=== PATIENT | male | born 1995 ===

== ENCOUNTER 2018-09-26 10:27 | Emergency (ER) | payer SELFPAY ==
[2018-09-26 10:44] LABS: Urine Blood 1+ (NEG); Urine Glucose NEGATIVE (NEG); Urine Protein 1+ (NEG); Urine Specific Gravity 1.025 (1.005-1.030); Urine pH 5.5 (5.0-7.0)
[2018-09-26 11:32] LABS: Potassium 4.2 mmol/L (3.5-5.1)
[2018-09-26] MEDS ORDERED: DERMABOND SKIN ADHESIVE TOP ONE (11:37)
[2018-09-26] MEDS ORDERED: LIDOCAINE 1% MPF 5 ML VIAL ONE ×2 (11:37→11:39)
[2018-09-26] MEDS ORDERED: TETANUS & DIPHTHERIA TOX,ADULT 0.5 ML VIAL ONE (11:38)
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
--- NOTE | 2018-09-26 12:47 | RAD REPORT ---
EXAM DESCRIPTION: US - Extremity Nonvascular Complete - 09/26/2018 12:39 pm CLINICAL HISTORY: Swelling;Pain COMPARISON: No comparisons TECHNIQUE: Real-time sonographic evaluation of the area of interest was performed. FINDINGS: No abnormal finding is seen in the region of interest. IMPRESSION: Negative study.
== END 2018-09-26 12:39 ==
LOC: ER 10:27
PROC: 0JQH0ZZ Repair Left Lower Arm Subcutaneous Tissue and Fascia, Open Approach (ICD-10-PCS; principal; 2018-09-26)
PROC: 0JQG0ZZ Repair Right Lower Arm Subcutaneous Tissue and Fascia, Open Approach (ICD-10-PCS; 2018-09-26)
PROC: 0JQM0ZZ Repair Left Upper Leg Subcutaneous Tissue and Fascia, Open Approach (ICD-10-PCS; 2018-09-26)
DX: S51.812A Laceration without foreign body of left forearm, initial encounter (principal); S51.811A Laceration without foreign body of right forearm, initial encounter; S71.112A Laceration without foreign body, left thigh, initial encounter; X78.1XXA Intentional self-harm by knife, initial encounter; Y93.9 Activity, unspecified; Y92.009 Unspecified place in unspecified non-institutional (private) residence as the place of occurrence of the external cause; Z23 Encounter for immunization
CPT/HCPCS: 36415; 76881; 80048; 81003; 90471; 90714; 93005; 99284